=== PATIENT | female | born 1980 | race Caucasian/White ===

== ENCOUNTER 2019-12-25 19:40 | Emergency (ER) | payer BC ==
[~2019-12-25] VITALS: Ht 165.1 cm; Wt 111.1 kg
[~2019-12-25 19:40] MED LIST: ABILIFY20 MG PO; ADDERALL XR 1515 MG PO; BUPROPION; LEVAQUIN 500 M500 MG PO; LORTABELXR PO; MEDROL DOSPAK21 TAB PO; PENICILLIN VK500 M1 PO; PROAIR HFA8.5 GM IH; SINGULAIR 10 MG10 M1 PO; XANAX 0.5 MG0.5 M1 PO
[2019-12-25] MEDS ORDERED: IBUPROFEN 600600 M1 PO (20:29)
[2019-12-25 22:35] VITALS: BP 150/89
== END 2019-12-25 22:35 | disposition home or self-care (01) ==
LOC: ER 19:40
DX: J02.0 Streptococcal pharyngitis (principal); F31.9 Bipolar disorder, unspecified; F17.210 Nicotine dependence, cigarettes, uncomplicated

== ENCOUNTER 2021-08-09 17:40 | Emergency (ER) | payer OTHER ==
[~2021-08-09] VITALS: Ht 165.1 cm; Wt 102.1 kg
[~2021-08-09 17:40] MED LIST changes: +IBUPROFEN 600600 M1 PO
[2021-08-09 19:46] LABS: URINE BILIRUBIN NEGATIVE (Negative); URINE BLOOD TRACE (Negative); URINE CLARITY SL CLOUDY; URINE COLOR YELLOW; URINE GLUCOSE-RANDOM* NEGATIVE (Negative); URINE KETONES TRACE (Negative); URINE LEUKOCYTES-REFLEX 1+ (Negative); URINE NITRITE-REFLEX NEGATIVE (Negative); URINE PROTEIN (DIPSTICK) TRACE (Negative); URINE UROBILINOGEN 0.2 E.U./dl (0.2-1.0)
[2021-08-09 20:03] LABS: AMP/METHAMP POSITIVE (Negative); BARBITURATES Negative (Negative); BENZODIAZEPINES POSITIVE (Negative); COCAINE Negative (Negative); METHADONE Negative (Negative); OPIATES Negative (Negative); PCP Negative (Negative)
[2021-08-09] MEDS ORDERED: FLAGYL500 M1 PO (20:17)
[2021-08-09] MEDS ORDERED: CYCLOBENZAPRINE5 MG PO (20:17)
[2021-08-09 20:35] LABS: SQUAMOUS 4-10 Moderate /LPF (0-3); URINE WBC-REFLEX 6-15 Few /HPF (0-5)
[2021-08-09 20:36] LABS: BACTERIA-REFLEX 1-9 Few /HPF (None Seen); CRYSTALS None Seen /LPF (None Seen); HYALINE CASTS 4-10 Moderate /LPF (None Seen); MUCUS 4-6 Moderate strn/LPF (None Seen); URINE RBC 3-10 Few /HPF (NONE SEEN)
[2021-08-09 21:20] VITALS: BP 114/60
[2021-08-09] MEDS ORDERED: DIAZEPAM 10 MG10 M2 PO (21:24)
[2021-08-09] MEDS ORDERED: GABAPENTIN800 M1 PO (21:24)
[2021-08-09] MEDS ORDERED: DOXEPIN 25 MG C25 M1 PO (21:25)
[2021-08-09] MEDS ORDERED: OXYCODONE HCL10 MG PO (21:25)
[2021-08-09] MEDS ORDERED: PRAZOSIN HCL2 MG PO (21:25)
[2021-08-09] MEDS ORDERED: BUSPIRONE HCL15 MG PO (21:26)
[2021-08-09] MEDS ORDERED: FLEXERIL PO (21:26)
[2021-08-10] MEDS ORDERED: DOXYCYCLINE 10100 MG PO (14:13)
== END 2021-08-09 21:28 | disposition home or self-care (01) ==
LOC: ER 17:40
PROVIDERS: Physician Assistant
DX: T76.21XA Adult sexual abuse, suspected, initial encounter (principal); S40.029A Contusion of unspecified upper arm, initial encounter; N76.0 Acute vaginitis; F17.210 Nicotine dependence, cigarettes, uncomplicated; Z79.899 Other long term (current) drug therapy; Z98.890 Other specified postprocedural states; X58.XXXA Exposure to other specified factors, initial encounter; Y93.89 Activity, other specified; Y92.89 Other specified places as the place of occurrence of the external cause; Y99.8 Other external cause status